=== PATIENT | male | born 1985 | race Caucasian/White ===

== ENCOUNTER 2020-10-15 18:00 | Emergency (ER) | payer MEDICARE, MEDICAID, SELFPAY ==
[2020-10-15 18:41] VITALS: BP 168/105; PULSE 105; RESP 18; TEMP 36.8; O2SAT 98; BMI 30.4
--- NOTE | 2020-10-15 19:48 | ED.SKABFB ---
HPI - Skin/Abscess/Foreign Bdy General Chief complaint: Skin/Abscess/Foreign Body Stated complaint: RASH? Time Seen by Provider: 10/15/20 19:00 Source: patient Mode of arrival: ambulatory Limitations: no limitations History of Present Illness HPI narrative: 35-year-old male on opioid maintenance of Suboxone presents with abscess to the right forearm. States that he feels like he was bitten by bedbugs. He also reports that he has not been eating very well over the past 2 days. He is asking for IV medications at this time. MD complaint: abscess/boil Onset (ago): day(s) Tetanus up to date: unsure Location: RUE Severity: mild Quality: aching Pain Consistency: constant Exacerbating factors: none Associated symptoms: other (Anorexia) Treatments prior to arrival: none Related Data Allergies Allergy/AdvReac Type Severity Reaction Status Date / Time No Known Allergies Allergy Verified 10/15/20 18:51 [No Known Allergies*] Review of Systems Review of Systems: Constitutional: Positive anorexia, No Fever, No Chills ENT/Mouth: No Ear Pain, No Hoarseness, No sore throat Eyes: No Eye Pain, No Swelling, No Redness, No Foreign Body Cardiovascular: No Chest Pain, No SOB Respiratory: No Cough, No Dyspnea Gastrointestinal: No Nausea, No Vomiting, No Diarrhea, No abdominal Pain Genitourinary: No Dysuria, No Hematuria Musculoskeletal: No joint pain, No Myalgias, No Joint Swelling Skin: Positive right fore arm abscess, No rash Neuro: No Weakness, No Numbness, No Paresthesias, No Loss of Consciousness, No Dizziness, No Headache Psych: No Anxiety/Panic, No Depression Heme/Lymph: no easy bruising, no Lymphadenopathy Endocrine: No Polyuria, No Polydipsia Yes all other systems are reviewed and are negative [facility] Past Medical History Attestation statement: The following information was validated with the patient. Source: old records reviewed Social History Social History Advance Directives: No Advance Directives Information Provided: Yes Physical Exam Vital Signs: Vital Signs: Last Vital Signs Temp 98.2 F 10/15/20 18:41 Pulse 105 H 10/15/20 18:41 Resp 18 10/15/20 18:41 BP 168/105 H 10/15/20 18:41 Pulse Ox 98 10/15/20 18:41 Body Mass Index 30.4 Appearance: Alert. Oriented X3. No acute distress. Eyes: Pupils equal, round and reactive to light. ENT: Pharynx normal. Neck: Normal inspection. Neck supple. CVS: Normal heart rate and rhythm. Pulses normal. Respiratory: No respiratory distress. Breath sounds normal. Abdomen: Soft and nontender. Skin: Positive wound to the right forearm dorsal aspect, ventral aspect has a 2 cm area of induration with a pinpoint pustule. No cervical or axillary lymphadenopathy noted. Skin warm and dry. Normal skin color. Normal skin turgor. Extremities: No lower extremity edema. Full range of motion to all extremities. Neuro: No motor deficit. No sensory deficit. Course Course Course Narrative: 35-year-old male presents with abscess to right forearm. States that he needs IV antibiotics immediately for energy. 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 Patient is adamant about IV medications prior lab values. I did discuss that lab values required prior to any IV medications however he disapproved of my assessment and left against advice. Discharge Plan Discharge Patient Disposition: Left Against Medical Advice Stand Alone Forms: Against Medical Advice
== END 2020-10-15 19:15 | disposition left against medical advice (07) ==
PROVIDERS: Emergency Provider Internal Medicine
DX: L02.413 Cutaneous abscess of right upper limb (principal); F11.20 Opioid dependence, uncomplicated; R63.0 Anorexia
CPT/HCPCS: 99283

== ENCOUNTER 2020-10-19 11:09 | Emergency (ER) | payer MEDICARE, MEDICAID, SELFPAY ==
[2020-10-19 11:22] VITALS: BP 145/101; PULSE 89; RESP 16; TEMP 36.6; O2SAT 98; BMI 30.4
[2020-10-19 11:57] LABS: MANUAL DIFF FLAG NO
[2020-10-19] MEDS: cephALEXin 500 MG CAPSULE PO (11:58)
[2020-10-19] MEDS: Lactated Ringers 1,000 ML 999 ML IV (11:59)
[2020-10-19 12:01] LABS: Basophils Percent Auto 0.1 % (0-2); Eosinophils Absolute Auto 0.1 X10*3/uL (0.0-0.4); Eosinophils Percent Auto 0.5 % (0-4); Hematocrit 39.3 % (42-52); Hemoglobin 12.8 g/dl (14.0-18.0); Imm Gran Abs Auto 0.06 X10*3/uL (0.00-0.03); Imm Gran Pct Auto 0.6 % (0.0-0.4); Lymphocytes Absolute Auto 1.1 X10*3/uL (1.2-4.9); Lymphocytes Percent Auto 10.9 % (20-40); Mean Corpuscular HGB Conc 32.6 g/dl (31.0-36.0); Mean Corpuscular Hemoglobin 29.9 pg (27.0-33.0); Mean Corpuscular Volume 91.8 fL (80-98); Mean Platelet Volume 10.4 fL (9.4-12.4); Monocytes Absolute Auto 0.7 X10*3/uL (0.1-1.2); Monocytes Percent Auto 6.6 % (2-11); Neutrophils Absolute Auto 8.1 X10*3/uL (2.0-8.3); Neutrophils Percent Auto 81.3 % (45-73); Platelet Count 205 X10*3/uL (160-400); Red Blood Count 4.28 X10*6/uL (4.60-5.80); Red Cell Distribution Width 13.1 % (11.0-16.0)
--- NOTE | 2020-10-19 12:20 | ED_ITS ---
HPI - Skin/Abscess/Foreign Bdy General Chief complaint: Skin/Abscess/Foreign Body Stated complaint: QUEST ABSCESS ON ELBOW Time Seen by Provider: 10/19/20 11:43 Source: patient Mode of arrival: ambulatory Limitations: language barrier (Mauritanian-speaking, interpreted) History of Present Illness HPI narrative: Patient is a 35-year-old male with no significant past medical history who presents with right forearm swelling and redness and pain x3 days. His reports he has also had subjective fever and chills and reduced appetite. She states he has trouble tolerating liquids because he has no appetite and he feels like he wants to vomited up. He denies any vomiting or diarrhea. He states he scratched his arm at work approximately 1 week ago and over then following few days it became red and swollen. He states he has been using warm compresses and it was leaking a little bit of fluid yesterday but the pain is getting worse and the redness is now swelling up to almost his elbow joint. Patient is requesting IV fluids. Related Data Previous Rx's Medication Instructions Recorded cephalexin [Keflex] 750 mg PO Q12H 10 Days #20 cap 10/19/20 sulfamethoxazole-trimethoprim 1 tab PO Q12H 10 Days #14 tab 10/19/20 [Bactrim DS] Allergies Allergy/AdvReac Type Severity Reaction Status Date / Time No Known Allergies Allergy Verified 10/15/20 18:51 [No Known Allergies*] Review of Systems Review of Systems: Yes all other systems are reviewed and are negative [facility] Social History Social History Advance Directives: No Advance Directives Information Provided: No Physical Exam Vital Signs: Vital Signs: Last Vital Signs Temp 97.8 F 10/19/20 11:22 Pulse 89 10/19/20 11:22 Resp 16 10/19/20 11:22 BP 145/101 H 10/19/20 11:22 Pulse Ox 98 10/19/20 11:22 Body Mass Index 30.4 Const: General: cooperative, healthy appearing, comfortable, no acute distress and well developed Nutritional Appearance: average body habitus Orientation/consciousness: patient oriented x3 Limitations: language barrier Eyes: General: appearance normal, both eyes and all related structures Neuro: General: patient oriented x3 Extrem: Right upper extremity: elbow/forearm Details: abnormal to inspection (central point, dried scab, indurated. Full range of motion, no tenderness swelling or erythema or warmth at the elbow joint and the wrist joint) Details: erythema, tenderness, swelling, normal ROM and warmth; no abrasions and no lacerations Course Course Course Narrative: Patient is a 35-year-old male with no significant past medical history who presents with right forearm swelling and redness and pain x3 days. As patient is requesting IV fluids, I will do a CBC, metabolic panel and rehydrate him although he looks very well on exam sans for an obvious cellulitis with an indurated abscess. Will give 1st dose of antibiotics in the ED and sent prescription for remainder. Reevaluation(s) Reevaluation #1: Labs WNL, will discharge once fluids are completed. Time: 12:46 MDM - Skin/Abscess/Foreign Bdy Lab Data Result diagrams: 10/19/20 11:54 10/19/20 11:54 Labs: Lab Results 10/19/20 10/19/20 Range/Units 11:54 11:54 WBC 10.0 (4.8-10.8) X10*3/uL RBC 4.28 L (4.60-5.80) X10*6/uL Hgb 12.8 L (14.0-18.0) g/dl Hct 39.3 L (42-52) % MCV 91.8 (80-98) fL MCH 29.9 (27.0-33.0) pg MCHC 32.6 (31.0-36.0) g/dl RDW 13.1 (11.0-16.0) % Plt Count 205 (160-400) X10*3/uL MPV 10.4 (9.4-12.4) fL Immature Gran % (Auto) 0.6 H (0.0-0.4) % Neut % (Auto) 81.3 H (45-73) % Lymph % (Auto) 10.9 L (20-40) % [place] % (Auto) 6.6 (2-11) % Eos % (Auto) 0.5 (0-4) % Baso % (Auto) 0.1 (0-2) % Lymph # (Auto) 1.1 L (1.2-4.9) X10*3/uL [place] # (Auto) 0.7 (0.1-1.2) X10*3/uL Eos # (Auto) 0.1 (0.0-0.4) X10*3/uL Baso # (Auto) 0.0 (0.0-0.2) X10*3/uL Abs Immat Gran (auto) 0.06 H (0.00-0.03) X10*3/uL Absolute Neuts (auto) 8.1 (2.0-8.3) X10*3/uL Absolute Nucleated RBC 0.000 (0.0-0.012) X10*3/uL Nucleated RBC % (auto) 0.0 (0.0-0.2) /100WBC Sodium 138 (135-145) mmol/L Potassium 4.3 (3.3-5.1) mmol/L Chloride 105 (96-108) mmol/L Carbon Dioxide 24 (22-29) mmol/L Anion Gap 13 (12-20) BUN 9 (9-16) mg/dL Creatinine 0.83 (0.5-1.4) mg/dL Estim Creat Clear Calc 147.4 Estimated GFR > 60 Random Glucose 94 (60-115) mg/dL Calcium 9.0 (8.4-10.2) mg/dL Discharge Plan Discharge Clinical Impression: Cellulitis Qualifiers: Site of cellulitis: extremity Site of cellulitis of extremity: upper extremity Laterality: right Qualified Code(s): L03.113 - Cellulitis of right upper limb Abscess of skin or subcutaneous tissue Qualifiers: Site of cutaneous abscess: extremity Site of cutaneous abscess of extremity: upper extremity Laterality: right Qualified Code(s): L02.413 - Cutaneous abscess of right upper limb Patient Disposition: Home, Self-Care Instructions: Cellulitis (ED) Additional Instructions: You may continue to use warm compresses on the area although he may not have much more drainage. Please take both antibiotics in full as prescribed. If your symptoms persist or you develop a high fever you can not control with Tylenol or Motrin for your unable to tolerate eating or drinking for more than 48 hours, please return to the emergency department Prescriptions: New sulfamethoxazole-trimethoprim [Bactrim DS] 800-160 mg tablet 1 tab PO Q12H 10 Days Qty: 14 RF: 0 cephalexin [Keflex] 750 mg capsule 750 mg PO Q12H 10 Days Qty: 20 RF: 0
[2020-10-19 12:25] LABS: Anion Gap 13 (12-20); Blood Urea Nitrogen 9 mg/dL (9-16); Carbon Dioxide 24 mmol/L (22-29); Chloride 105 mmol/L (96-108); Creatinine Clr Calc Pharmacy 147.4; Estimated Glomerular Filt Rate > 60; Glucose Random 94 mg/dL (60-115); Potassium 4.3 mmol/L (3.3-5.1); Sodium 138 mmol/L (135-145)
[2020-10-19 12:59] VITALS: PULSE 72; RESP 17; TEMP 37
== END 2020-10-19 13:00 | disposition home or self-care (01) ==
PROVIDERS: Physician Assistant; Emergency Provider Emergency Medicine Emergency Medical Services
DX: L02.413 Cutaneous abscess of right upper limb (principal); L03.113 Cellulitis of right upper limb; R22.31 Localized swelling, mass and lump, right upper limb; M79.631 Pain in right forearm
CPT/HCPCS: 36415; 80048; 85025; 96360; 99284

== ENCOUNTER 2021-06-26 17:35 | Emergency (ER) | payer MEDICARE, MEDICAID, SELFPAY ==
[2021-06-26 18:07] VITALS: BP 144/99; PULSE 98; RESP 17; TEMP 36.8; O2SAT 98; BMI 33.2
[2021-06-26 18:37] LABS: Basophils Percent Auto 0.1 % (0-2); Hematocrit 45.5 % (42.0-52.0); Imm Gran Abs Auto 0.05 X10*3/uL (0.00-0.03); Imm Gran Pct Auto 0.4 % (0.0-0.4); Lymphocytes Absolute Auto 2.8 X10*3/uL (1.2-4.9); Lymphocytes Percent Auto 22.4 % (20-40); MANUAL DIFF FLAG NO; Mean Corpuscular Hemoglobin 29.8 pg (27.0-33.0); Mean Corpuscular Volume 90.3 fL (80.0-98.0); Monocytes Absolute Auto 1.2 X10*3/uL (0.1-1.2); Monocytes Percent Auto 9.1 % (2-11); Neutrophils Absolute Auto 8.6 x10*3/uL (2.0-8.3); Platelet Count 213 X10*3/uL (160-400); Red Blood Count 5.04 X10*6/uL (4.60-5.80); Red Cell Distribution Width 13.4 % (11.0-16.0); White Blood Count 12.6 X10*3/uL (4.8-10.8)
[2021-06-26 18:51] LABS: Appearance Urine CLEAR; Color Urine YELLOW; Glucose Urine UA NEG (NEG); Leukocyte Esterase Urine NEG (NEG); Nitrite Urine NEG (NEG); PH 6.5 (5.0-8.0); Urine Blood NEG (NEG); Urine Ketones 15 MG/DL (NEG); Urine Protein TRACE MG/DL (NEG-TRACE)
[2021-06-26 18:51] LABS: Alanine Aminotransferase 26 U/L (0-40); Albumin Level 4.7 g/dL (3.5-5.0); Alkaline Phosphatase 59 U/L (39-117); Anion Gap 13 (12-20); Aspartate Amino Transferase 45 U/L (5-37); Bilirubin Total 0.6 mg/dL (0.0-1.0); Blood Urea Nitrogen 23 mg/dL (9-16); Calcium 9.9 mg/dL (8.4-10.2); Carbon Dioxide 29 mmol/L (22-29); Chloride 101 mmol/L (96-108); Estimated Glomerular Filt Rate > 60; Glucose Random 109 mg/dL (60-115); Potassium 4.1 mmol/L (3.3-5.1); Sodium 139 mmol/L (135-145); Total Protein 7.7 g/dL (6.5-8.0)
== END 2021-06-26 22:44 | disposition left against medical advice (07) ==
PROVIDERS: Emergency Provider Emergency Medicine
DX: R10.9 Unspecified abdominal pain (principal); R11.2 Nausea with vomiting, unspecified
CPT/HCPCS: 36415; 80053; 81003; 85025; 99283

== ENCOUNTER 2022-05-14 02:05 | Emergency (ER) | payer MEDICARE, MEDICAID, SELFPAY ==
--- NOTE | ~2022-05-14 | US_ITS ---
EXAMINATION: US ABDOMEN LIMITED CLINICAL INFORMATION: Vomiting with elevated LFTs. COMPARISON: None TECHNIQUE: Real-time imaging of the right upper quadrant abdominal viscera. FINDINGS: PANCREAS: The pancreas appears unremarkable, without masses or ductal dilatation, with the exception of the tail which is obscured by bowel gas. LIVER: The liver is normal in size. The liver contour is normal. Parenchymal echogenicity is normal. No focal hepatic lesion. There is no intrahepatic biliary duct dilatation seen. GALLBLADDER: The gallbladder is physiologically distended without evidence of stones, sludge, polyps, wall thickening or pericholecystic fluid. COMMON BILE DUCT: Normal in caliber measuring 0.5 cm in diameter. RIGHT KIDNEY: No hydronephrosis. No renal calculi or focal parenchymal lesions. The kidney measures 10.2 cm in maximum dimension. FREE FLUID: None. US/US abdomen limited IMPRESSION: Negative exam.
[2022-05-14 02:11] VITALS: BP 159/109; PULSE 119; RESP 20; TEMP 36.4; O2SAT 97; BMI 26.4
[2022-05-14 02:28] LABS: Basophils Percent Auto 0.1 % (0-2); Hemoglobin 13.2 g/dl (14.0-18.0); Imm Gran Pct Auto 0.5 % (0.0-0.4); Lymphocytes Absolute Auto 1.8 X10*3/uL (1.2-4.9); Lymphocytes Percent Auto 9.2 % (20-40); Mean Corpuscular HGB Conc 33.8 g/dl (31.0-36.0); Mean Corpuscular Volume 88.6 fL (80.0-98.0); Mean Platelet Volume 10.4 fL (9.4-12.4); Monocytes Absolute Auto 2.4 X10*3/uL (0.1-1.2); Monocytes Percent Auto 12.2 % (2-11); Neutrophils Absolute Auto 15.1 x10*3/uL (2.0-8.3); Platelet Count 201 X10*3/uL (160-400); Red Cell Distribution Width 13.2 % (11.0-16.0); SCAN SMEAR FLAG 1; White Blood Count 19.4 X10*3/uL (4.8-10.8)
[2022-05-14 02:29] LABS: MANUAL DIFF FLAG SCAN
[2022-05-14 02:43] LABS: Alanine Aminotransferase 51 U/L (0-40); Albumin Level 4.6 g/dL (3.5-5.0); Alkaline Phosphatase 60 U/L (39-117); Anion Gap 18 (12-20); Aspartate Amino Transferase 180 U/L (5-37); Bilirubin Direct 0.2 mg/dL (0.0-0.5); Bilirubin Total 0.5 mg/dL (0.0-1.0); Blood Urea Nitrogen 44 mg/dL (9-16); Calcium 9.7 mg/dL (8.4-10.2); Carbon Dioxide 27 mmol/L (22-29); Chloride 97 mmol/L (96-108); Creatinine Clr Calc Pharmacy 75.1; Estimated Glomerular Filt Rate 56; Glucose Random 135 mg/dL (60-115); Lipase 10 U/L (8-78); Potassium 4.4 mmol/L (3.3-5.1); Sodium 138 mmol/L (135-145)
[2022-05-14 02:45] LABS: SLIDE REVIEW VERIFIED
--- NOTE | 2022-05-14 07:37 | PC.NURSE ---
Patient presents to ED with report of abdominal pain for approx 1 day reports inability to keep down food or liquids unsure of any sick contacts. LS clear no respiratory distress noted abdomen soft non tender no guarding noted. Patient reports small amount of blood in stool. Neuros intact IV access obtained will CTM
--- NOTE | 2022-05-14 08:55 | ED.ABDPAIN ---
HPI - Abdominal Pain General Chief Complaint: Abdominal Pain Stated Complaint: n/v, blood in vomit? Time Seen by Provider: 05/14/22 08:50 Source: patient Mode of arrival: ambulatory Limitations: no limitations History of Present Illness HPI narrative: 37 year old male with signs of cyclical vomiting. He denies alcohol use admits to daily marijuana use then stated when I attempted to educate him that it could be part of his recurrent vomiting problem that he smoke 1-2 times a day or once a week. He smells strongly of marijuana. He states he has been vomiting since yesterday. He has never been here before for his vomiting. He states he is epigastric pain. Labs were drawn as he had been in the hospital for 6 hours prior to me being able to see him. He has a elevated WBC count and elevated LFT's. He denies having liver problems or drinking. He denies fever chills cough or shortness of breath. MD elicited complaint: abdominal pain Related Data Previous Rx's Medication Instructions Recorded cephalexin 750 mg capsule (Keflex) 750 mg PO Q12H 10 days #20 caps 10/19/20 sulfamethoxazole 800 1 tab PO Q12H 10 days #14 tabs 10/19/20 mg-trimethoprim 160 mg tablet (Bactrim DS) famotidine 20 mg tablet (Pepcid) 20 mg PO BID PRN abdominal pain 05/14/22 #60 tabs ondansetron 4 mg disintegrating 4 mg PO Q6H #14 tabs 05/14/22 tablet Allergies Allergy/AdvReac Type Severity Reaction Status Date / Time No Known Allergies Allergy Verified 05/14/22 02:18 [No Known Allergies*] Review of Systems Review of Systems Review of systems: General: Patient denies any fever chills recent illness or falls Musculoskeletal: Denies back pain or body aches or other injuries HEENT: denies headache, runny nose, ear pain Respiratory: denies shortness of breath, cough Cardiovascular: no chest pain or palpitations : denies dysuria, frequency Abdomen: nausea vomiting epigastric abdominal pain Extremities: no swelling, no pain Skin: no diaphoresis Yes all other systems are reviewed and are negative [facility] Past Medical History Medical History (Updated 05/14/22 @ 10:02 by Taz Butcher DO) No pertinent past medical history Social History Social History Advance Directives: No Physical Exam ED Vital Signs: Vital Signs - 24 hr 05/14/22 02:11 Temperature 97.6 F Pulse Rate 119 H Respiratory Rate 20 Blood Pressure 159/109 H Pulse Oximetry 97 Oxygen Delivery Method Room Air BMI result Body Mass Index 26.4 General: Well-appearing well-nourished in no signs of distress HEENT: Normocephalic atraumatic Neck: No signs of JVD, no masses no tenderness or lymphadenopathy Cardiovascular: Regular rate and rhythm Respiratory: Clear to auscultation bilaterally Abdomen: Soft nontender no masses Extremities: Normal pedal pulses no signs of edema Skin: Dry warm no rashes Back: No tenderness full ROM Medical Decision Making Medical Decision Making [facility] Narrative: Patient with elevated AST compared to ALT with epigastric pain I will send for US. I will give fluids reglan and benadryl as well as pepcid for potential gastritis. Labs do show elevated AST I will send off a acute hepatitis viral panel for ABC virus. I educated the patient on the results. His kidney function is slightly affected givena liter and as long as he is tolerating fluids well I think he is safe to go home. 1000 I was able to wake up the patient he was feeling much better given huang rocio and crackes which he tolerated. I will send home with zofran and PCP follow up. Differential Diagnosis Differential Diagnoses: The differential diagnosis associated with the presentation includes Marijuana hyperemeiss, cyclical vomiting, dehydration, FABIENNE, electrolyte abnormality, acute liver injury or cholecystitis. Lab Data [facility] Lab Attestation statement: I reviewed the patient's lab results. Result Diagrams: 05/14/22 02:24 05/14/22 02:24 Labs: Lab Results 05/14/22 05/14/22 05/14/22 Range/Units 02:24 02:24 09:01 WBC 19.4 H (4.8-10.8) X10*3/uL RBC 4.40 L (4.60-5.80) X10*6/uL Hgb 13.2 L (14.0-18.0) g/dl Hct 39.0 L (42.0-52.0) % MCV 88.6 (80.0-98.0) fL MCH 30.0 (27.0-33.0) pg MCHC 33.8 (31.0-36.0) g/dl RDW 13.2 (11.0-16.0) % Plt Count 201 (160-400) X10*3/uL MPV 10.4 (9.4-12.4) fL Immature Gran % (Auto) 0.5 H (0.0-0.4) % Neut % (Auto) 78.0 H (45-73) % Lymph % (Auto) 9.2 L (20-40) % [place] % (Auto) 12.2 H (2-11) % Eos % (Auto) 0.0 (0-4) % Baso % (Auto) 0.1 (0-2) % Lymph # (Auto) 1.8 (1.2-4.9) X10*3/uL [place] # (Auto) 2.4 H (0.1-1.2) X10*3/uL Eos # (Auto) 0.0 (0.0-0.4) X10*3/uL Baso # (Auto) 0.0 (0.0-0.2) X10*3/uL Abs Immat Gran (auto) 0.10 H (0.00-0.03) X10*3/uL Absolute Neuts (auto) 15.1 H (2.0-8.3) x10*3/uL Absolute Nucleated RBC 0.000 (0.0-0.012) X10*3/uL Nucleated RBC % (auto) 0.0 (0.0-0.2) /100WBC Smear Tech's Comments VERIFIED Sodium 138 (135-145) mmol/L Potassium 4.4 (3.3-5.1) mmol/L Chloride 97 (96-108) mmol/L Carbon Dioxide 27 (22-29) mmol/L Anion Gap 18 (12-20) BUN 44 H (9-16) mg/dL Creatinine 1.42 H (0.5-1.4) mg/dL Estim Creat Clear Calc 75.1 Estimated GFR 56 Random Glucose 135 H (60-115) mg/dL Calcium 9.7 (8.4-10.2) mg/dL Total Bilirubin 0.5 (0.0-1.0) mg/dL Direct Bilirubin 0.2 (0.0-0.5) mg/dL AST 180 H (5-37) U/L ALT 51 H (0-40) U/L Alkaline Phosphatase 60 (39-117) U/L Total Protein 7.0 (6.5-8.0) g/dL Albumin 4.6 (3.5-5.0) g/dL Lipase 10 (8-78) U/L Ethyl Alcohol < 10 mg/dL Medications Administered Generic Name Dose Route Start Last Admin Trade Name Freq PRN Reason Stop Dose Admin Sodium Chloride 1,000 mls @ 999 mls/hr 05/14/22 09:00 05/14/22 09:03 Ns IV 05/14/22 10:00 999 mls/hr .[id number] HUMA Administration Discontinued Medications Generic Name Dose Route Start Last Admin Trade Name Freq PRN Reason Stop Dose Admin Diphenhydramine HCl 50 mg 05/14/22 08:51 05/14/22 09:02 Diphenhydramine Hcl 50 Mg/Ml Vial IM 05/14/22 08:52 50 mg ONCE ONE Administration Famotidine 20 mg 05/14/22 08:51 05/14/22 09:03 Famotidine/Pf 20 Mg/2 Ml Vial IVPUSH 05/14/22 08:52 20 mg ONCE ONE Administration Metoclopramide HCl 10 mg 05/14/22 08:51 05/14/22 09:03 Metoclopramide Hcl 10 Mg/2 Ml Vial IVPUSH 05/14/22 08:52 10 mg ONCE ONE Administration Discharge Plan Discharge Clinical Impression: Abdominal pain, Cannabinoid hyperemesis syndrome, Vomiting, Dehydration, Hepatitis, Acute kidney injury Patient Disposition: Home, Self-Care Instructions: Abdominal Pain (ED), Acute Nausea and Vomiting (ED), Cannabis Abuse (ED), Dehydration (ED) Prescriptions: New famotidine [Pepcid] 20 mg tablet 20 mg PO BID PRN (Reason: abdominal pain) Qty: 60 0RF ondansetron 4 mg tablet,disintegrating 4 mg PO Q6H Qty: 14 0RF No Action sulfamethoxazole-trimethoprim [Bactrim DS] 800-160 mg tablet 1 tab PO Q12H 10 Days Qty: 14 0RF cephalexin [Keflex] 750 mg capsule 750 mg PO Q12H 10 Days Qty: 20 0RF Print Language: Belarusian
[2022-05-14] MEDS: diphenhydrAMINE HCL 50 MG/ML VIAL IM (09:02)
[2022-05-14] MEDS: Famotidine/PF 20 MG/2 ML VIAL IVPUSH (09:03)
[2022-05-14] MEDS: 0.9 % Sodium Chloride 1,000 ML 999 ML IV (09:03)
[2022-05-14] MEDS: Metoclopramide HCl 10 MG/2 ML VIAL IVPUSH (09:03)
--- NOTE | 2022-05-14 09:18 | PC.NURSE ---
Bedside ultrasound will CTM
[2022-05-14 09:29] LABS: Ethanol < 10 mg/dL
[2022-05-15 09:37] LABS: HBS Num1 11.46 mIU/mL (0-7.99); HBc Num1 0.07 S/CO (0.00-0.79); HBsAGNum1 0.34 S/CO (0.00-0.99); Hepatitis A Antibody IgM 0.18 Index (0-0.79); Hepatitis B Core Antibody Nonreactive (Nonreactive); Hepatitis B Surface Antigen Negative (Negative); ~HepC Num1 0.06 S/CO (0.00-0.79); ~Hepatitis A Antibody IgM Nonreactive (Nonreactive); ~Hepatitis C Antibody Nonreactive (Nonreactive)
[2022-05-15 13:42] LABS: HBS Num2 10.99 mIU/mL (0-7.99); HBS Num3 10.66 mIU/mL (0-7.99); ~Hepatitis B Surface Antibody GRAYZONE (Nonreactive)
== END 2022-05-14 10:24 | disposition home or self-care (01) ==
PROVIDERS: Emergency Provider Student in an Organized Health Care Education/Training Program
DX: R11.2 Nausea with vomiting, unspecified (principal); F12.19 Cannabis abuse with unspecified cannabis-induced disorder; R10.9 Unspecified abdominal pain; E86.0 Dehydration; K75.9 Inflammatory liver disease, unspecified; Z20.822 Contact with and (suspected) exposure to COVID-19; Z79.899 Other long term (current) drug therapy
CPT/HCPCS: 36415; 76705; 80048; 80076; 82077; 83690; 85025; 86704; 86706; 86709; 86803; 87340; 96361; 96372; 96374; 96375; 99284; J1200; J2765